=== PATIENT | male | born 1985 | race Caucasian/White ===

== ENCOUNTER → 2019-06-19 | Outpatient (CLI) | payer OTHER ==
[~2019-06-19] MED LIST: COLA100C5 PO; GABAPOW41 PO; NAPRPOW4 PO; PERCOCET PO; PROHANCE 279.3MG/ML 15ML VIAL (A9576) As Ordered ONE; PROHANCE 279.3MG/ML 5ML VIAL (A9576) As Ordered ONE; TRAMADOL PO
--- NOTE | 2019-06-19 13:25 | REP ---
MRI lumbar spine without and with IV contrast: History: Low back pain. History of previous surgery. Comparison MRI study is from January 18, 2014. The patient gives a history of right lower extremity numbness and tingling. Technique: Sagittal and axial T1 and T2-weighted scans are acquired in the usual fashion with and without fat saturation. Sequences include spin echo, turbo spin-echo, and STIR imaging sequences. The gadolinium enhancement dose is 20 mL of intravenous ProHance. MRI findings: Lumbar vertebral body heights are preserved. Alignment is normal. Conus medullaris remains normal in position and appearance at T12-L1. There is fibrosis in the dorsal extra spinal soft tissues to the right of midline at L4-5 and L5-S1 consistent with previous surgery. A right laminectomy defect is visible at L5-S1. The previously noted free fragment is no longer apparent. There is posterior osteophytic ridging however and diffuse disc bulging. This is more pronounced along the right margin of the thecal sac and there is some compression of the S1 root at this level. There is some enhancing granulation tissue along the posterior margin of the L5-S1 disc. At L4-5, there is diffuse disc bulging. There is an annulus tear and a small central focal disc protrusion is seen. Ligamentum flavum and facet hypertrophy contribute along with this to mild central canal stenosis at L4-5. The mid line AP dimension of the thecal sac at L4-5 is 7.7 mm. No foraminal narrowing is seen. At L3-4, there is mild diffuse disc bulging. No other finding. At L2-3, there is minimal diffuse disc bulging. The L1-2 disc level is unremarkable. Impression: Post laminectomy changes on the right at L5-S1 and L4-5. Right posterior osteophytic ridging is seen at L5-S1 compressing the right S1 root. Small central disc protrusion at L4-5 contributing to central canal stenosis. Electronically Signed by Jules Soto MD 06/19/2019 03:16 P
== END ==
LOC: M RAD 08:18
PROVIDERS: ATTEND Physician Assistant
DX: M54.5 Low back pain (principal)

== ENCOUNTER → 2020-06-10 | Outpatient (CLI) | payer OTHER ==
[~2020-06-10] MED LIST changes: -PROHANCE 279.3MG/ML 15ML VIAL (A9576) As Ordered ONE; -PROHANCE 279.3MG/ML 5ML VIAL (A9576) As Ordered ONE
== END ==
LOC: M LABSMTC 10:19
PROVIDERS: ATTEND Family Medicine
DX: Z20.828 Contact with and (suspected) exposure to other viral communicable diseases (principal)
CPT/HCPCS: C9803; U0003